=== PATIENT | female | born 1930 | race Caucasian/White ===

== ENCOUNTER 2017-02-01 19:11 | Emergency (ER) | payer OTHER ==
[~2017-02-01] VITALS: Ht 157.5 cm; Wt 53.0 kg
[2017-02-01 20:08] LABS: ADD MIUA? NO; BILIRUBIN NEGATIVE; BLOOD NEGATIVE; COLOR YELLOW ((YELLOW)); GLUCOSE (STRIP) NEGATIVE; KETONES NEGATIVE; LEUKOCYTES NEGATIVE; NITRITE NEGATIVE; PROTEIN (STRIP) 30; SPECIFIC GRAVITY 1.015 (1.000-1.030); UCUL ADDED? NO; UROBILINOGEN 0.2 MG/DL (0.2-1.0)
[2017-02-01 20:09] LABS: EOSINOPHIL (%) 0.1 % (0-5); HEMATOCRIT 38.2 % (36.0-46.0); IMMATURE GRANULOCYTE (%) 1.4 % (0.0-0.7); IMMATURE GRANULOCYTE COUNT 0.2 K/uL; INSTRUMENT ABS NEUTROPHIL CT 13.6 K/uL; LYMPHOCYTE COUNT 1.2 K/uL (1.0-2.8); MCH 27.8 PG (29.0-34.0); MCHC 31.4 G/DL (30.0-36.0); MCV 88.6 FL (83-99); MEAN PLAT.VOLUME 10.5 uM^3 (9.5-12.4); MONOCYTE (%) 7.1 % (3-12); MONOCYTE COUNT 1.2 K/uL (0-0.8); NEUTROPHIL (%) 83.6 % (45-76); NEUTROPHIL COUNT 13.6 K/uL (1.8-6.4); NRBC (%) 0.2 /100 WBC (0-0); PLATELET COUNT 152 K/uL (156-360); RBC DIS.WIDTH-CV 14.1 % (11.8-14.6); RBC DIS.WIDTH-SD 45.5 % (39-53); RED BLOOD COUNT 4.31 M/uL (3.80-5.20); WHITE BLOOD COUNT 16.3 K/uL (4.1-10.2)
[2017-02-01 20:17] LABS: CHLORIDE 104 mEq/L (99-109); POTASSIUM 4.7 mEq/L (3.7-5.4); SODIUM 139 mEq/L (136-147)
[2017-02-01 20:19] LABS: GLUCOSE 129 mg/dL (70-99)
[2017-02-01 20:20] LABS: ANION GAP 21 MEQ/L (2-14)
[2017-02-01 20:23] LABS: GFR ESTIMATE (CALCULATED) 32 mL/min/
[2017-02-01 20:24] LABS: UREA NITROGEN (BUN) 28 mg/dL (9-23)
[2017-02-01 20:25] LABS: CREATINE KINASE 337 IU/L (1-294); TOTAL CK 337 IU/L (1-294)
[2017-02-01 20:30] LABS: TROP-I INTERPRETATION POSITIVE; TROPONIN-I 7.88 ng/mL (0.0-0.30)
[2017-02-01 20:31] LABS: CK-MB 20.5 ng/mL (0.0-4.9)
[2017-02-01] MEDS ORDERED: BYSTOLIC10 MG PO (21:37)
[2017-02-01] MEDS ORDERED: CLONIDINE HCL0.1 MG PO (21:37)
[2017-02-01] MEDS ORDERED: DIOVAN320 MG PO (21:37)
[2017-02-01] MEDS ORDERED: LO-DOSE ASPIRIN81 M1 PO (21:39)
[2017-02-01 22:12] LABS: POINT-OF-CARE METER ID UU13113702
[2017-02-02 01:35] VITALS: BP 94/56
== END 2017-02-02 01:57 | disposition short-term general hospital (02) ==
LOC: EME 19:11
PROVIDERS: Emergency Medicine
PROC: 06HN33Z Insertion of Infusion Device into Left Femoral Vein, Percutaneous Approach (ICD-10-PCS; principal; 2017-02-01)
DX: I21.4 Non-ST elevation (NSTEMI) myocardial infarction (principal); I95.89 Other hypotension; E87.2 Acidosis; S72.091A Other fracture of head and neck of right femur, initial encounter for closed fracture; W18.30XA Fall on same level, unspecified, initial encounter; J18.9 Pneumonia, unspecified organism; I10 Essential (primary) hypertension
CPT/HCPCS: 70450; 71010; 73502; 80048; 81003; 82550; 82553; 82948; 83605; 84484; 85025; 87040; 93005; 99281; 99285; J0692; J2405; J7030; J7050